=== PATIENT | male | born 1950 | race Caucasian/White ===

== ENCOUNTER 2022-12-22 07:01 | Day surgery (SDC) | payer MEDICARE, OTHER ==
[~2022-12-22 07:01] MED LIST: Sodium Chloride 0.9% 10 ML Syringe FLUSH PRN
[2022-12-22] MEDS ORDERED: Phenylephrine 0.5% Nasal Spray 15 ML Bot NAS ONE (07:02)
[2022-12-22] MEDS ORDERED: Glycopyrrolate 0.2 MG/ML 5 ML MDV IV ONE (07:02)
[2022-12-22] MEDS ORDERED: Lidocaine 2% 5 ML SDV INJECT ONE (07:02)
[2022-12-22] MEDS ORDERED: Propofol 200 MG/20 ML SDV IV ONE (07:02)
[2022-12-22] MEDS: Lactated Ringers 1,000 ML IV SCH (08:00)
[2022-12-22] MEDS: Simethicone Drops 40 MG/0.6 ML 30 ML Bottle PO ONE (08:21)
== END 2022-12-22 10:05 | disposition home or self-care (01) ==
LOC: FB.SDS 07:01
PROVIDERS: ATTEND Surgery
DX: Z12.11 Encounter for screening for malignant neoplasm of colon (principal); D12.0 Benign neoplasm of cecum; D12.6 Benign neoplasm of colon, unspecified; K57.30 Diverticulosis of large intestine without perforation or abscess without bleeding; I10 Essential (primary) hypertension; E78.00 Pure hypercholesterolemia, unspecified; R73.03 Prediabetes; E66.01 Morbid (severe) obesity due to excess calories; Z79.84 Long term (current) use of oral hypoglycemic drugs; Z79.899 Other long term (current) drug therapy; Z98.890 Other specified postprocedural states; Z68.41 Body mass index [BMI] 40.0-44.9, adult
CPT/HCPCS: 00811; 88305; A9270-GY; J2704; J3490; J7120